=== PATIENT | female | born 1975 | race Caucasian/White ===

== ENCOUNTER 2017-01-30 18:22 | Emergency (ER) | payer OTHER ==
--- NOTE | 2017-01-30 20:39 | ED ORDER SUMMARY ---
..... Patient: JUD IRAHETA OrderSheet [facility] VisitID: [id number] [address] [place] [address] 41y, F Registration Date/Time: 01/30/2017 ORDER SHEET Weight: 68.0 kg (stated) Allergies: Sulfa Antibiotics GENERAL ORDERS: CBC w Diff Urgent (19:01/30/2017 HBivens A.R.N.P.) (Ack 19:08 Merissa) (19:25 LWhalen R.N.) CMP Urgent (19:01/30/2017 HBivens A.R.N.P.) (Ack 19:08 Merissa) (19:25 LWhalen R.N.) Amylase Urgent (19:01/30/2017 HBivens A.R.N.P.) (Ack 19:08 Hevernandez) (19:25 LWhalen R.N.) Lipase Urgent (19:01/30/2017 HBivens A.R.N.P.) (Ack 19:08 Merissa) (19:25 LWhalen R.N.) UA-Culture if indicated Urgent (20:52 01/30/2017 Pallavi per protocol) (20:53 Radha) MEDICATION ORDERS: IV FLUIDS: IV NS : initial bolus 1000 mL (1000 mL/hr), then none - (NOW) (19:01/30/2017 HBivens A.R.N.P.) (19:27 LWhalen R.N.) Zofran IV 4 mg (NOW) (19:01/30/2017 HBivens A.R.N.P.) (19:26 LWhalen R.N.) Ativan IV 1 mg (HIGH ALERT MEDICATION, NOW) (19:01/30/2017 HBivens A.R.N.P.) (19:26 LWhalen R.N.) IV Saline Lock (19:01/30/2017 HBivens A.R.N.P.) (Ack 19:27 LWhalen R.N.) ORDER SHEET NOTES: [Electronically signed by Tonya Willis.R.N.PRobyn (22:00 01/30/2017)] [Electronically signed by Araceli Daniels (:01/31/2017)] [Electronically locked/signed by Araceli Daniels (01/31/2017)]
--- NOTE | 2017-01-30 20:39 | ED NURSING NOTES ---
Clinical Report - Nurses [facility] [address] [place] [address] 01/30/2017 18:24 Patient: JUD IRAHETA TRIAGE Triage time 18:36 Jan 30 2017. Acuity: LEVEL 3. Chief Complaint: ABDOMINAL PAIN, NAUSEA and VOMITING. JANAE COMA SCORE: [place] Coma Scale: 15- eyes open spontaneously (4); best verbal response- oriented x 4 (5); best motor response- obeys commands (6). --18:52 Satya Sampson R.N. 18:36 01/30/17. BP: 135/78. HR: 70. RR: 20. O2 saturation: 100%. Temp: 98.1 F. Pain level now 5/10. --18:52 Satya Sampson R.N. Weight: 68 kg stated. Height/Length: 66 inches Per Patient. BMI: 24.2. --18:49 Satya Sampson R.N. Medications Wellbutrin Oral. --18:44 Satya Sampson R.N. LaMICtal Oral. --18:44 Satya Sampson R.N. Desmopressin Acetate Oral. --18:45 Satya Sampson R.N. Allergies Sulfa Antibiotics. --18:45 Satya Sampson R.N. History Arrived by EMS. Historian: patient. This started just prior to arrival. ( Having vomiting and has diabetes insipudus she gets low sodium and has been hospitalized before. Patient slightly anxious this is a repeat of that. Was at work felt faint and began vomiting. States feels out of it and foggy.). She has had vomiting. Last oral intake by patient was (1500). PAST MEDICAL HX: Diabetes mellitus. Peptic ulcer disease. No history of gastroesophageal reflux disease or gallstones. Immunizations: up-to-date. Last normal menstrual period- December 26. SOCIAL HX: Current every day smoker (cigarette). Regular alcohol use; consumes three liquor weekly. (On weekend). No drug use. No recent travel. No known contact with a sick individual. SELF HARM ASSESSMENT: A self harm assessment was performed. The patient answered "yes" to the question "Have you recently felt down, depressed, or hopeless?" and "no" to the question "Do you have thoughts of harming or killing yourself?". FALL RISK ASSESSMENT: Fall risk assessment completed. No fall risk identified. NUTRITIONAL RISK ASSESSMENT: The nutritional risk assessment revealed no deficiencies. FUNCTIONAL ASSESSMENT: Functional assessment: no impairments noted. LEARNING NEEDS ASSESSMENT: The learning needs assessment revealed no barriers. ABUSE ASSESSMENT: Abuse assessment: (yes) The patient was asked "Do you feel safe in your home?". SKIN INTEGRITY ASSESSMENT: Skin integrity risk assessment completed. No skin integrity risk identified. --18:52 Satya Sampson R.N. PROBLEMS: Gastritis. Diabetes Insipidus. Alcholic. Anxiety. --18:45 Satya Sampson R.N. ADDITIONAL SURGERIES: Laparoscopy. --18:45 Satya Sampson R.N. Interventions ID band on patient. --18:52 Satya Sampson R.N. PHYSICAL ASSESSMENT Ambulatory to room. GENERAL / NEURO / PSYCH: Alert. Oriented X 4. Appears anxious. HEENT: Mucous membranes are pink. RESPIRATORY: Respirations not labored. Breath sounds within normal limits. CVS: Normal sinus rhythm noted. Capillary refill less than 2 seconds. GI / : The patient has had nausea. Emesis noted. Abdomen soft and nontender. Bowel sounds within normal limits. ( Last BM today and normal). SKIN: Skin is warm and dry. --18:53 Satya Sampson R.N. NURSING PROGRESS NOTES The initial plan of care for this patient includes an assessment with efforts to address patient positioning, appropriate ambient lighting and comfortable environmental temperature; impairment of the gastrointestinal system. Pulse oximeter and NIBP monitor placed on patient. Patient gowned. Head of bed elevated 75 degrees. Reassurance given. Call light placed in reach. Side rails up x 1. Bed placed in lowest position. Brakes of bed on. --18:53 Satya Sampson R.N. Care transferred and report received (Received report from Satya RN, assumed care of pt). --19:19 Selina Teran R.N. 16:01/30/2017 Site #1 started prior to arrival by EMS via IV in the right antecubital space with an 22g angiocath, with aseptic technique and good blood return; one attempt. Saline lock flushed with 10 mL saline. --19: Satya Sampson R.N. 19:01/30/2017 Zofran (Ondansetron HCl) IVP 4 mg given over 2 minute(s) via site #1. Allergies verified and confirmed 5 rights. IV patency established. IV site checked: no pain, redness, or swelling. IV flushed thoroughly pre- and post-medication administration. --19: Satya Sampson R.N. 19:01/30/2017 Ativan (LORazepam) IVP 1 mg given over 2 minute(s) via site #1. Allergies verified, confirmed 5 rights and sedative warning given to the patient. IV patency established. IV site checked: no pain, redness, or swelling. IV flushed thoroughly pre- and post-medication administration. --19: Satya Sampson R.N. 19:01/30/2017 Started bag #1 1000 mL IV Fluids IV NS (Saline); at 999 mL/hr over 1 hour(s) via site #1 via dial-a-flow. Allergies verified and confirmed 5 rights. IV patency established. IV site checked: no pain, redness, or swelling. IV flushed thoroughly pre- and post-medication administration. --19: Satya Sampson R.N. Patient ID band checked for patient name and birthdate: patient confirmed. Instructions provided to collect clean catch urine and patient verbalized understanding. Clean catch urine collected with return of yellow-colored clear urine; sample sent to lab for urinalysis. Specimen labeled in the presence of the patient. --20:54 Araceli Daniels 20:39 01/30/2017 IV Fluids IV NS Discontinued: bag #1 completed. Total amount infused: 1000 mL. IV patency established. IV site checked: no pain, redness, or swelling. IV flushed thoroughly. --20:54 Araceli Daniels. DISPOSITION / DISCHARGE 21:00 01/30/17. Condition at departure: improved and stable. The goals identified in the patient's plan of care were met. No learning barriers present. Discharge instructions provided and reviewed with the patient. Reviewed medication(s) side effects, precautions, dosing and course information. Prescription(s) given to the patient. Reviewed bland diet and need for increased fluid intake. Patient verbalized understanding. Written instructions provided in Cypriot. ( Follow up with your PCP in three days. Return if your symptoms do not improve. Discussed bland diet and the importance of taking small sips of fluids until feeling better. Patient verbalize understanding and had no additional questions at this time.). The patient was discharged by the physician employment assistant. She was discharged home and accompanied by managing consultant. She left the Emergency Department ambulatory and via private vehicle. Charge Entry Clerk driving. FALL RISK ASSESSMENT: Fall risk assessment completed. No fall risk identified. --23:16 Araceli Daniels 21:00 01/30/17. BP: 123/63. HR: 73. RR: 20. O2 saturation: 99% on room air. Temp: 98.7 F (oral). Pain level now: 0/10. --23:16 Araceli Daniels 21:00 01/30/2017 Site #1 removed upon discharge. Catheter intact. Bandaid applied. --23:16 Araceli Daniels. Locked/Released at 01/31/2017 1:11 by Araceli Daniels,
--- NOTE | 2017-01-30 20:39 | ED ORDER SUMMARY ---
..... Patient: JUD IRAHETA OrderSheet [facility] VisitID: [id number] [address] [place] [address] 41y, F Registration Date/Time: 01/30/2017 ORDER SHEET Weight: 68.0 kg (stated) Allergies: Sulfa Antibiotics GENERAL ORDERS: CBC w Diff Urgent (19:01/30/2017 HBivens A.R.N.P.) (Ack 19:08 Merissa) (19:25 LWhalen R.N.) CMP Urgent (19:01/30/2017 HBivens A.R.N.P.) (Ack 19:08 Merissa) (19:25 LWhalen R.N.) Amylase Urgent (19:01/30/2017 HBivens A.R.N.P.) (Ack 19:08 Hevernandez) (19:25 LWhalen R.N.) Lipase Urgent (19:01/30/2017 HBivens A.R.N.P.) (Ack 19:08 Merissa) (19:25 LWhalen R.N.) UA-Culture if indicated Urgent (20:52 01/30/2017 Pallavi per protocol) (20:53 Radha) MEDICATION ORDERS: IV FLUIDS: IV NS : initial bolus 1000 mL (1000 mL/hr), then none - (NOW) (19:01/30/2017 HBivens A.R.N.P.) (19:27 LWhalen R.N.) Zofran IV 4 mg (NOW) (19:01/30/2017 HBivens A.R.N.P.) (19:26 LWhalen R.N.) Ativan IV 1 mg (HIGH ALERT MEDICATION, NOW) (19:01/30/2017 HBivens A.R.N.P.) (19:26 LWhalen R.N.) IV Saline Lock (19:01/30/2017 HBivens A.R.N.P.) (Ack 19:27 LWhalen R.N.) ORDER SHEET NOTES: [Electronically signed by Tonya Willis.R.N.PRobyn (22:00 01/30/2017)] [Electronically signed by Araceli Daniels (:01/31/2017)] [Electronically locked/signed by Araceli Daniels (01/31/2017)]
--- NOTE | 2017-01-30 20:39 | ED CLINICAL REPORT ---
Clinical Report - Physicians/Mid Levels [facility] [address] [place] [address] 01/30/2017 18:24 Patient: JUD IRAHETA Time Seen: 18:35; initial patient contact, initial documentation, patient care assumed. Arrived- By ambulance. Historian- patient. HISTORY OF PRESENT ILLNESS Chief Complaint: VOMITING. This started today and is still present. It was abrupt in onset. No recent travel. She has had nausea. She has had vomiting (x5-6 episodes back to back). The vomiting has occurred several times. No bilious emesis, feculent emesis, blood-tinged emesis, coffee-grounds emesis or frankly bloody emesis. No unusually dark emesis. No diarrhea, black stools, bloody stools, abdominal pain or constipation. No flank pain, history of possible bad food exposure, known contact with a sick individual or change in routine. Has not recently been camping or on antibiotics. The illness is described as moderate. Similar symptoms previously: Once, worse. ( was admitted into hospital for low Na, afraid she is doing it again). Recent medical care: Not recently seen/assessed. REVIEW OF SYSTEMS No fever, difficulty with urination, dark urine, chest pain or difficulty breathing. Denies current . All systems otherwise negative, except as recorded above. PAST HISTORY See nurses notes. PROBLEMS: Gastritis. Diabetes Insipidus. Alcholic. Anxiety. --18:45 Satya Sampson, R.N. ADDITIONAL SURGERIES: Laparoscopy. --18:45 Satya Sampson, R.N. SOCIAL HISTORY Light tobacco smoker. Regular alcohol use; consumes liquor. No drug use. No recent travel. Is a local resident. FAMILY HISTORY Negative. ADDITIONAL NOTES The nursing notes have been reviewed with agreement regarding the chief complaint, HPI, ROS, PMH and patient medications and allergies. PHYSICAL EXAM Vital Signs: 01/30/2017 18:36 BP: 135/78. HR: 70. RR: 20. O2 saturation: 100%. Temp: 98.1 F. Have been reviewed as normal and appear to be correct. Appearance: Alert. Oriented X3. No acute distress. Anxious. Eyes: Pupils equal, round and reactive to light. Eyes normal inspection. Neck: Normal inspection. Neck supple. CVS: Normal heart rate and rhythm. Heart sounds normal. Pulses normal. Respiratory: No respiratory distress. Breath sounds normal. Abdomen: Soft and nontender. Bowel sounds normal. No organomegaly. No mass. Back: Normal inspection. Skin: Skin warm and dry. Normal skin color. No rash. Normal skin turgor. Extremities: Extremities exhibit normal ROM. No lower extremity edema. Neuro: Oriented X 3. No motor deficit. No sensory deficit. LABS, X-RAYS, AND EKG Laboratory Tests: CBC w Diff: (KATHY: 01/30/2017 19:30) ( MsgRcvd 01/30/2017 19:54) Final results Test Result Flag Units (Reference) WHITE BLOOD COUNT 7.2 K/uL (4.5-11.5) RED BLOOD COUNT 3.71 L M/uL (4.00-5.20) HEMOGLOBIN 11.6 L gm/dL (12.0-16.0) HEMATOCRIT 34.1 L % (36.0-46.0) MEAN CELL VOLUME 92 fL (80-100) MEAN CORPUSCULAR HGB 31 pg (26-34) MEAN CORPUSCULAR HGB CONC 34 g/dL (31-37) RED CELL DISTRIBUTION WIDTH 12.8 % (11.6-14.8) PLATELET COUNT 268 K/uL (150-400) NEUTROPHIL % 70.6 % (50-75) LYMPH % 21.5 L % (25-40) MONO % 6.4 % (3-14) EOSINOPHIL % 0.9 % (0-4) BASOPHIL % 0.6 % (0-2) CMP: (KATHY: 01/30/2017 19:30) ( MsgRcvd 01/30/2017 20:04) Final results Test Result Flag Units (Reference) GLUCOSE 97 mg/dL (70-110) BUN 11 mg/dL (7-18) CREATININE 0.7 mg/dL (0.6-1.3) Estimated GFR >60 mL/min Estimated GFR- >60 mL/min Note: Persistent reduction over 3 months in eGFR<60 mL/min/1.73 m2 defines CKD. Patients with eGFR values>=60 mL/min/1.73 m2 may also have CKD if evidence ofpersistent proteinuria. Additional information may be foundat www.kidney.org. SODIUM 139 mmol/L (136-145) POTASSIUM 4.3 mmol/L (3.5-5.1) CHLORIDE 106 mmol/L (98-107) CARBON DIOXIDE 23 mmol/L (21-32) CALCIUM 8.3 L mg/dL (8.5-10.1) TOTAL PROTEIN 6.6 g/dL (6.4-8.2) ALBUMIN 3.8 g/dL (3.3-5.0) BILIRUBIN, TOTAL 0.4 mg/dL (0.0-1.0) ALKALINE PHOSPHATASE 58 U/L (46-116) AST (SGOT) 13 L U/L (15-37) ALT (SGPT) 21 U/L (12-78) LIPASE 105 U/L (73-393) AMYLASE 48 U/L (25-115) . Bedside Tests: Glucose normal - 88 (performed by EMS). PROGRESS AND PROCEDURES Course of Care: pt more relaxed, no vomiting, and stated she felt better, and was also relieved to know her Na was normal limits. Patient counseled in person regarding the patient's stable condition, test results and diagnosis. 20:16. Differential Diagnosis: I considered gastritis, peptic ulcer disease, gastroesophageal reflux disease, gastroparesis, small bowel obstruction, gastric outlet obstruction, colonic obstruction, colon cancer, gastroenteritis, cholecystitis, pancreatitis, viral syndrome, enterocolitis, urinary tract infection, hepatitis, sepsis, increased intracranial pressure, drugs, diabetic ketoacidosis, hyperthyroidism, hyperparathyroidism and as a possible cause of vomiting in this patient. This is a partial list of diagnoses considered. Above considerations are based on history, physical exam, reassessment and laboratory data. Differential diagnosis was discussed with patient. Disposition: Discharged home in good and improved condition (20:39). Condition: good and stable. CLINICAL IMPRESSION Intractable vomiting with nausea. No dehydration or volume depletion. Not bilious. INSTRUCTIONS Take clear liquids only (frequent sips) for the next 24 hours until better. May continue medications with sips only. Advance diet as tolerated. Avoid. Warnings: GENERAL WARNINGS: Return or contact your physician immediately if your condition worsens or changes unexpectedly, if not improving as expected, or if other problems arise. SPECIFICALLY, return if you develop pain in the abdomen or pelvis, fever, the inability to keep fluids down, blood in vomitus, blood in diarrhea, fainting or lightheadedness. Prescription Medications: Zofran 4 mg: Take 1 orally every six hours as needed for nausea/vomiting. Dispense ten (10). No refills. Substitution is permissible. Follow-up: Follow up with your doctor in about two days even if well. Call for an appointment. Summary of care provided to patient. Understanding of the discharge instructions verbalized by patient. (Electronically signed by Tonya Willis A.R.N.P. 01/30/2017 22:00)
--- NOTE | 2017-01-30 20:39 | ED NURSING NOTES ---
Clinical Report - Nurses [facility] [address] [place] [address] 01/30/2017 18:24 Patient: JUD IRAHETA TRIAGE Triage time 18:36 Jan 30 2017. Acuity: LEVEL 3. Chief Complaint: ABDOMINAL PAIN, NAUSEA and VOMITING. JANAE COMA SCORE: [place] Coma Scale: 15- eyes open spontaneously (4); best verbal response- oriented x 4 (5); best motor response- obeys commands (6). --18:52 Satya Sampson R.N. 18:36 01/30/17. BP: 135/78. HR: 70. RR: 20. O2 saturation: 100%. Temp: 98.1 F. Pain level now 5/10. --18:52 Satya Sampson R.N. Weight: 68 kg stated. Height/Length: 66 inches Per Patient. BMI: 24.2. --18:49 Satya Sampson R.N. Medications Wellbutrin Oral. --18:44 Satya Sampson R.N. LaMICtal Oral. --18:44 Satya Sampson R.N. Desmopressin Acetate Oral. --18:45 Satya Sampson R.N. Allergies Sulfa Antibiotics. --18:45 Satya Sampson R.N. History Arrived by EMS. Historian: patient. This started just prior to arrival. ( Having vomiting and has diabetes insipudus she gets low sodium and has been hospitalized before. Patient slightly anxious this is a repeat of that. Was at work felt faint and began vomiting. States feels out of it and foggy.). She has had vomiting. Last oral intake by patient was (1500). PAST MEDICAL HX: Diabetes mellitus. Peptic ulcer disease. No history of gastroesophageal reflux disease or gallstones. Immunizations: up-to-date. Last normal menstrual period- December 26. SOCIAL HX: Current every day smoker (cigarette). Regular alcohol use; consumes three liquor weekly. (On weekend). No drug use. No recent travel. No known contact with a sick individual. SELF HARM ASSESSMENT: A self harm assessment was performed. The patient answered "yes" to the question "Have you recently felt down, depressed, or hopeless?" and "no" to the question "Do you have thoughts of harming or killing yourself?". FALL RISK ASSESSMENT: Fall risk assessment completed. No fall risk identified. NUTRITIONAL RISK ASSESSMENT: The nutritional risk assessment revealed no deficiencies. FUNCTIONAL ASSESSMENT: Functional assessment: no impairments noted. LEARNING NEEDS ASSESSMENT: The learning needs assessment revealed no barriers. ABUSE ASSESSMENT: Abuse assessment: (yes) The patient was asked "Do you feel safe in your home?". SKIN INTEGRITY ASSESSMENT: Skin integrity risk assessment completed. No skin integrity risk identified. --18:52 Satya Sampson R.N. PROBLEMS: Gastritis. Diabetes Insipidus. Alcholic. Anxiety. --18:45 Satya Sampson R.N. ADDITIONAL SURGERIES: Laparoscopy. --18:45 Satya Sampson R.N. Interventions ID band on patient. --18:52 Satya Sampson R.N. PHYSICAL ASSESSMENT Ambulatory to room. GENERAL / NEURO / PSYCH: Alert. Oriented X 4. Appears anxious. HEENT: Mucous membranes are pink. RESPIRATORY: Respirations not labored. Breath sounds within normal limits. CVS: Normal sinus rhythm noted. Capillary refill less than 2 seconds. GI / : The patient has had nausea. Emesis noted. Abdomen soft and nontender. Bowel sounds within normal limits. ( Last BM today and normal). SKIN: Skin is warm and dry. --18:53 Satya Sampson R.N. NURSING PROGRESS NOTES The initial plan of care for this patient includes an assessment with efforts to address patient positioning, appropriate ambient lighting and comfortable environmental temperature; impairment of the gastrointestinal system. Pulse oximeter and NIBP monitor placed on patient. Patient gowned. Head of bed elevated 75 degrees. Reassurance given. Call light placed in reach. Side rails up x 1. Bed placed in lowest position. Brakes of bed on. --18:53 Satya Sampson R.N. Care transferred and report received (Received report from Satya RN, assumed care of pt). --19:19 Selina Teran R.N. 16:01/30/2017 Site #1 started prior to arrival by EMS via IV in the right antecubital space with an 22g angiocath, with aseptic technique and good blood return; one attempt. Saline lock flushed with 10 mL saline. --19: Satya Sampson R.N. 19:01/30/2017 Zofran (Ondansetron HCl) IVP 4 mg given over 2 minute(s) via site #1. Allergies verified and confirmed 5 rights. IV patency established. IV site checked: no pain, redness, or swelling. IV flushed thoroughly pre- and post-medication administration. --19: Satya Sampson R.N. 19:01/30/2017 Ativan (LORazepam) IVP 1 mg given over 2 minute(s) via site #1. Allergies verified, confirmed 5 rights and sedative warning given to the patient. IV patency established. IV site checked: no pain, redness, or swelling. IV flushed thoroughly pre- and post-medication administration. --19: Satya Sampson R.N. 19:01/30/2017 Started bag #1 1000 mL IV Fluids IV NS (Saline); at 999 mL/hr over 1 hour(s) via site #1 via dial-a-flow. Allergies verified and confirmed 5 rights. IV patency established. IV site checked: no pain, redness, or swelling. IV flushed thoroughly pre- and post-medication administration. --19: Satya Sampson R.N. Patient ID band checked for patient name and birthdate: patient confirmed. Instructions provided to collect clean catch urine and patient verbalized understanding. Clean catch urine collected with return of yellow-colored clear urine; sample sent to lab for urinalysis. Specimen labeled in the presence of the patient. --20:54 Araceli Daniels 20:39 01/30/2017 IV Fluids IV NS Discontinued: bag #1 completed. Total amount infused: 1000 mL. IV patency established. IV site checked: no pain, redness, or swelling. IV flushed thoroughly. --20:54 Araceli Daniels. DISPOSITION / DISCHARGE 21:00 01/30/17. Condition at departure: improved and stable. The goals identified in the patient's plan of care were met. No learning barriers present. Discharge instructions provided and reviewed with the patient. Reviewed medication(s) side effects, precautions, dosing and course information. Prescription(s) given to the patient. Reviewed bland diet and need for increased fluid intake. Patient verbalized understanding. Written instructions provided in Kenyan. ( Follow up with your PCP in three days. Return if your symptoms do not improve. Discussed bland diet and the importance of taking small sips of fluids until feeling better. Patient verbalize understanding and had no additional questions at this time.). The patient was discharged by the physician assistant mechanic. She was discharged home and accompanied by hot wort settler. She left the Emergency Department ambulatory and via private vehicle. Moss Bleacher driving. FALL RISK ASSESSMENT: Fall risk assessment completed. No fall risk identified. --23:16 Araceli Daniels 21:00 01/30/17. BP: 123/63. HR: 73. RR: 20. O2 saturation: 99% on room air. Temp: 98.7 F (oral). Pain level now: 0/10. --23:16 Araceli Daniels 21:00 01/30/2017 Site #1 removed upon discharge. Catheter intact. Bandaid applied. --23:16 Araceli Daniels. Locked/Released at 01/31/2017 1:11 by Araceli Daniels,
--- NOTE | 2017-01-31 01:12 | ED MAR SUMMARY ---
..... Medication Administration Record [facility] [address] [place] [address] Patient: JUD IRAHETA Visit ID: [id number] 41y, F Weight: 68.0 kg Height/Length: 66 in BMI: 24.2 ALLERGIES: Sulfa Antibiotics Given 19:21 01/30/2017 Satya Sampson R.N. Medication Administered: ZOFRAN [IVP] (ONDANSETRON HCL), Dose: 4 mg IVP over 2 minute(s), Site: #1 right AC. Medication Ordered: Zofran IV 4 mg (NOW). Given 19:01/30/2017 Satya Sampson R.N. Medication Administered: ATIVAN [IVP] (LORAZEPAM), Dose: 1 mg IVP over 2 minute(s), Site: #1 right AC. Medication Ordered: Ativan IV 1 mg (HIGH ALERT MEDICATION, NOW). Start 19:26 01/30/2017 Satya Sampson R.N., Stop 20:39 01/30/2017 Araceli Daniels, Medication Administered: IV NS (SALINE), Dose: IV Fluids over 1 hour(s), Rate: 999 mL/hr, Dispensed: 1000 mL bag, Site: #1 right AC. Medication Ordered: IV NS : initial bolus 1000 mL (1000 mL/hr), then none - (NOW).
--- NOTE | 2017-01-31 01:12 | ED MAR SUMMARY ---
..... Medication Administration Record Formerly [facility] [address] [place] [address] Patient: JUD IRAHETA Visit ID: [id number] 41y, F Weight: 68.0 kg Height/Length: 66 in BMI: 24.2 ALLERGIES: Sulfa Antibiotics Given 19:21 01/30/2017 Satya Sampson R.N. Medication Administered: ZOFRAN [IVP] (ONDANSETRON HCL), Dose: 4 mg IVP over 2 minute(s), Site: #1 right AC. Medication Ordered: Zofran IV 4 mg (NOW). Given 19:01/30/2017 Satya Sampson R.N. Medication Administered: ATIVAN [IVP] (LORAZEPAM), Dose: 1 mg IVP over 2 minute(s), Site: #1 right AC. Medication Ordered: Ativan IV 1 mg (HIGH ALERT MEDICATION, NOW). Start 19:26 01/30/2017 Satya Sampson R.N., Stop 20:39 01/30/2017 Araceli Daniels, Medication Administered: IV NS (SALINE), Dose: IV Fluids over 1 hour(s), Rate: 999 mL/hr, Dispensed: 1000 mL bag, Site: #1 right AC. Medication Ordered: IV NS : initial bolus 1000 mL (1000 mL/hr), then none - (NOW).
--- NOTE | 2017-01-31 01:12 | ED MED RECONCILIATION SUMMARY ---
Patient: JUD IRAHETA Medication Reconciliation Report [facility] VisitID: [id number] [address] [place] [address] 41y, F Registration Date/Time: 01/30/2017 Weight: 68.0 kg Height/Length: 66 in. BMI: 24.2 ALLERGIES: Sulfa Antibiotics The patient's Home Medications are listed below: THE FOLLOWING MEDICATIONS NEED TO BE RECONCILED: Desmopressin Acetate Oral LaMICtal Oral Wellbutrin Oral The source(s) of the original Home Medication information: Not obtained. The following Medications were given to the patient in the Emergency Department: Ativan [IVP] IVP 1 mg, administered: 01/30/2017 7:26:00 PM Zofran [IVP] IVP 4 mg, administered: 01/30/2017 7:21:00 PM IV NS IV Fluids bolus 0, then 999 mL/hr, administered: 01/30/2017 7:26:00 PM The following Medications were prescribed to the patient: Zofran 4 mg: Take 1 orally every six hours as needed for nausea/vomiting. Dispense ten (10). No refills. Substitution is permissible. -- Tonya Willis A.R.N.P.
--- NOTE | 2017-01-31 01:12 | ED MED RECONCILIATION SUMMARY ---
Patient: JUD IRAHETA Medication Reconciliation Report [facility] VisitID: [id number] [address] [place] [address] 41y, F Registration Date/Time: 01/30/2017 Weight: 68.0 kg Height/Length: 66 in. BMI: 24.2 ALLERGIES: Sulfa Antibiotics The patient's Home Medications are listed below: THE FOLLOWING MEDICATIONS NEED TO BE RECONCILED: Desmopressin Acetate Oral LaMICtal Oral Wellbutrin Oral The source(s) of the original Home Medication information: Not obtained. The following Medications were given to the patient in the Emergency Department: Ativan [IVP] IVP 1 mg, administered: 01/30/2017 7:26:00 PM Zofran [IVP] IVP 4 mg, administered: 01/30/2017 7:21:00 PM IV NS IV Fluids bolus 0, then 999 mL/hr, administered: 01/30/2017 7:26:00 PM The following Medications were prescribed to the patient: Zofran 4 mg: Take 1 orally every six hours as needed for nausea/vomiting. Dispense ten (10). No refills. Substitution is permissible. -- Tonya Willis A.R.N.P.
--- NOTE | 2017-01-31 01:12 | ED DISCHARGE INSTRUCTIONS ---
Patient: JUD IRAHETA General Instructions [facility] VisitID: [id number] [address] [place] [address] 41y, F Registration Date/Time: 01/30/2017 Intractable vomiting with nausea. No dehydration or volume depletion. Not bilious. INSTRUCTIONS Take clear liquids only (frequent sips) for the next 24 hours until better. May continue medications with sips only. Advance diet as tolerated. Avoid. Warnings: GENERAL WARNINGS: Return or contact your physician immediately if your condition worsens or changes unexpectedly, if not improving as expected, or if other problems arise. SPECIFICALLY, return if you develop pain in the abdomen or pelvis, fever, the inability to keep fluids down, blood in vomitus, blood in diarrhea, fainting or lightheadedness. Prescription Medications: Zofran 4 mg: Take 1 orally every six hours as needed for nausea/vomiting. Dispense ten (10). No refills. Substitution is permissible. Follow-up: Follow up with your doctor in about two days even if well. Call for an appointment. Summary of care provided to patient. Understanding of the discharge instructions verbalized by patient. ADDITIONAL INFORMATION Vomiting [6Yr-Adult] Vomiting is a common symptom that may be due to different causes. These include gastroenteritis ("stomach flu"), food poisoning and gastritis. There are other more serious causes of vomiting which may be hard to diagnose early in the illness. Therefore, it is important to watch for the warning signs listed below. The main danger from repeated vomiting is dehydration. This is due to excess loss of water and minerals from the body. When this occurs, body fluids must be replaced. Home Care: If symptoms are severe, rest at home for the next 24 hours. You may use acetaminophen (Tylenol) or ibuprofen (Motrin, Advil) to control fever, unless another medicine was prescribed. [NOTE : If you have chronic liver or kidney disease or ever had a stomach ulcer or GI bleeding, talk with your doctor before using these medicines.] (Aspirin should never be used in anyone under 18 years of age who is ill with a fever. It may cause severe liver damage.) Avoid tobacco and alcohol use, which may worsen your symptoms. If medicines for vomiting were prescribed, take as directed. Once vomiting stops, then follow these guidelines: During The First 12-24 Hours follow the diet below: FRUIT JUICES: Apple, grape juice, clear fruit drinks, and electrolyte replacement drinks. BEVERAGES: Soft drinks without caffeine; mineral water (plain or flavored), decaffeinated tea and coffee. SOUPS: Clear broth, consomm and bouillon DESSERTS: Plain gelatin, popsicles and fruit juice bars. As you feel better, you may add 6-8 ounces of yogurt per day. During The Next 24 Hours you may add the following to the above: Hot cereal, plain toast, bread, rolls, crackers Plain noodles, rice, mashed potatoes, chicken noodle or rice soup Unsweetened canned fruit (avoid pineapple), bananas Limit caffeine and chocolate. No spices or seasonings except salt. During The Next 24 Hours Gradually resume a normal diet, as you feel better and your symptoms lessen. Follow Up with your doctor as advised if you are not improving over the next 2-3 days. Get Prompt Medical Attention if any of the following occur: Constant right-sided lower abdominal pain or increasing general abdominal pain Continued vomiting (unable to keep liquids down) for 24 hours Frequent diarrhea (more than 5 times a day); blood (red or black color) or mucus in diarrhea Reduced urine output or extreme thirst Weakness, dizziness or fainting Unusually drowsy or confused Fever of 100.4F (38C) oral or higher, not better with fever medication Yellow color of the eyes or skin Clear Liquid Diet Clear liquids are any liquid that you can see through as well as those that are very easy to digest. This is used while the body is recovering from irritation or infection of the stomach or intestinal tract. It may also be used before special procedures or surgery. This diet is to be used no more than three days. You may include the following items. Adults Adults should drink a total of 23 quarts of liquid per day. It may be easier to drink small frequent servings rather than a few large ones. Liquids can include: Fruit juices.Strained orange juice or lemonade (no pulp), apple, grape and cranberry juice, clear fruit drinks, sports drinks Beverages.Sport drinks, sodas, mineral water (plain or flavored), tea, black coffee, liquid gelatin (add twice the recommended amount of water) Soups.Clear broth, consomm, bouillon Desserts.Plain gelatin, popsicles, fruit juice bars Children Over 2 years old The following liquids are acceptable for children over age 2: Fruit juices.Strained orange juice or lemonade (no pulp), apple, grape and cranberry juice, clear fruit drinks Beverages. Sports drinks, sodas, mineral water (plain or flavored), tea, liquid gelatin (add twice the recommended amount of water) Soups. Clear broth, consomm, bouillon Desserts. Plain gelatin, popsicles, fruit juice bars Children under 2 years old Oral rehydration fluids such are available at drug stores and most grocery stores without a prescription. Harvey Diet A bland diet is used for patients with an upset stomach. It consists of foods that are mild and easy to digest. It is better to eat small frequent meals rather than three large meals a day. BEVERAGES OK: Fruit juices, non-caffeinated teas and coffee, non-carbonated skaggs AVOID: Carbonated beverage, caffeinated tea and coffee, all alcoholic beverages BREAD OK: Refined white, wheat or rye bread, conor or soda crackers, Leigha toast, plain rolls, bagels AVOID: Whole-grain bread CEREAL OK: Refined cereals: cooked or ready to eat AVOID: Whole grain cereals and granola, or those containing bran, seeds or nuts DESSERTS OK: Peanut butter and all others except those to "avoid" AVOID: Chocolate, cocoa, coconut, popcorn, nuts, seeds, jam, marmalade FRUITS OK: Canned, cooked, frozen or fresh fruits without seeds or tough skin AVOID: Olives, skin and seeds of fruit MEATS OK: All fresh or preserved meat, fish and fowl AVOID: Any that are prepared with those spices to "avoid" CHEESE & EGGS OK: Eggs, cottage cheese, cream cheese, other cheeses AVOID: All cheeses made with those spices to "avoid" POTATOES & PASTA OK: Potato, rice, macaroni, noodles, spaghetti AVOID: None SOUPS OK: All soups without heavy seasoning AVOID: Soups made with those spices to "avoid" VEGETABLES OK: Canned, cooked, fresh or frozen mildly flavored vegetables without seeds, skins or coarse fiber AVOID: Vegetables prepared with those spices to "avoid"; skin and seeds of vegetables and those with coarse fiber SPICES OK: Salt, lemon and klamath juice, vinegar, all extracts, julian, cinnamon, thyme, mace, allspice, paprika AVOID: [place]ill[place] powder, cloves, pepper, seed spices, garlic, gravy pickles, highly seasoned salad dressings Clear Liquid Diet Clear liquids are any liquid that you can see through as well as those that are very easy to digest. This is used while the body is recovering from irritation or infection of the stomach or intestinal tract. It may also be used before special procedures or surgery. This diet is to be used no more than three days. You may include the following items. Adults Adults should drink a total of 23 quarts of liquid per day. It may be easier to drink small frequent servings rather than a few large ones. Liquids can include: Fruit juices.Strained orange juice or lemonade (no pulp), apple, grape and cranberry juice, clear fruit drinks, sports drinks Beverages.Sport drinks, sodas, mineral water (plain or flavored), tea, black coffee, liquid gelatin (add twice the recommended amount of water) Soups.Clear broth, consomm, bouillon Desserts.Plain gelatin, popsicles, fruit juice bars Children Over 2 years old The following liquids are acceptable for children over age 2: Fruit juices.Strained orange juice or lemonade (no pulp), apple, grape and cranberry juice, clear fruit drinks Beverages. Sports drinks, sodas, mineral water (plain or flavored), tea, liquid gelatin (add twice the recommended amount of water) Soups. Clear broth, consomm, bouillon Desserts. Plain gelatin, popsicles, fruit juice bars Children under 2 years old Oral rehydration fluids such are available at drug stores and most grocery stores without a prescription. Ondansetron Oral disintegrating tablet What is this medicine? ONDANSETRON (on CINDI se shayna) is used to treat nausea and vomiting caused by chemotherapy. It is also used to prevent or treat nausea and vomiting after surgery. How should I use this medicine? These tablets are made to dissolve in the mouth. Do not try to push the tablet through the foil backing. With dry hands, peel away the foil backing and gently remove the tablet. Place the tablet in the mouth and allow it to dissolve, then swallow. While you may take these tablets with water, it is not necessary to do so. Talk to your paper plate machine tender regarding the use of this medicine in children. Special care may be needed. What side effects may I notice from receiving this medicine? Side effects that you should report to your doctor or health child care education coordinator as soon as possible: allergic reactions like skin rash, itching or hives, swelling of the face, lips, or tongue breathing problems dizziness fast or irregular heartbeat feeling faint or lightheaded, falls fever and chills swelling of the hands and feet tightness in the chest Side effects that usually do not require medical attention (report to your doctor or health child care education coordinator if they continue or are bothersome): constipation or diarrhea headache What may interact with this medicine? Do not take this medicine with any of the following medications: -apomorphine -cisapride -dofetilide -dronedarone -pimozide -thioridazine -ziprasidone This medicine may also interact with the following medications: -carbamazepine -phenytoin -rifampicin -tramadol -other medicines that prolong the QT interval (cause an abnormal heart rhythm) What if I miss a dose? If you miss a dose, take it as soon as you can. If it is almost time for your next dose, take only that dose. Do not take double or extra doses. Where should I keep my medicine? Keep out of the reach of children. Store between 2 and 30 degrees C (36 and 86 degrees F). Throw away any unused medicine after the expiration date. What should I tell my health care provider before I take this medicine? They need to know if you have any of these conditions: heart disease history of irregular heartbeat liver disease low levels of magnesium or potassium in the blood an unusual or allergic reaction to ondansetron, granisetron, other medicines, foods, dyes, or preservatives or trying to get breast-feeding What should I watch for while using this medicine? Check with your doctor or health child care education coordinator as soon as you can if you have any sign of an allergic reaction. You have been given the following additional information: Vomiting (6Y-Adult) Diet, Clear Liquid Diet, Harvey (Adult) Diet, Clear Liquid Ondansetron Oral disintegrating tablet (Electronically signed by Tonya Willis A.R.N.P. 01/30/2017 22:00)
== END 2017-01-30 21:00 | disposition home or self-care (01) ==
LOC: ED SRH 18:22
DX: R11.2 Nausea with vomiting, unspecified (principal); E23.2 Diabetes insipidus; F17.210 Nicotine dependence, cigarettes, uncomplicated; Z88.2 Allergy status to sulfonamides
CPT/HCPCS: 90004; 90074; 90100; 92235; 92530; 95059